=== PATIENT | female | born 1990 | race Caucasian/White ===

== ENCOUNTER 2017-01-19 16:23 | Emergency (ER) | payer OTHER ==
[~2017-01-19] VITALS: Ht 180.3 cm; Wt 97.8 kg
[2017-01-19 16:28] VITALS: BP 139/95
[2017-01-19] MEDS ORDERED: DIPH,PERTUSS(ACELL),TET VAC/PF 0.5 ML IM-VACC ONE (17:00)
[2017-01-19] MEDS ORDERED: LIDOCAINE 1%, 20ML SQ ONE (17:00)
== END 2017-01-19 17:45 | disposition home or self-care (01) ==
LOC: ED 17:39
DX: S91.311A Laceration without foreign body, right foot, initial encounter (principal); W22.8XXA Striking against or struck by other objects, initial encounter; Y93.89 Activity, other specified; Y99.8 Other external cause status; Y92.009 Unspecified place in unspecified non-institutional (private) residence as the place of occurrence of the external cause
CPT/HCPCS: 12001; 99283